=== PATIENT | male | born 1995 | race Two or more races ===

== ENCOUNTER 2024-11-29 07:53 | Emergency (ER) | payer SELFPAY ==
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
[2024-11-29 08:07] VITALS: BP 136/95; PULSE 124; RESP 23; TEMP 37.4; O2SAT 95
[2024-11-29 08:21] VITALS: BMI 29.5
[2024-11-29] MEDS: DIPHTH,PERTUSS(ACELL),TET VAC 0.5 ML SYR- ADULT IMi (08:44)
[2024-11-29 08:48] VITALS: BP 113/71; PULSE 93; RESP 16; O2SAT 97
== END 2024-11-29 09:33 ==
LOC: SERX 10:09
PROVIDERS: Emergency Provider Emergency Medicine
DX: Z02.89 Encounter for other administrative examinations (principal); S60.418A Abrasion of other finger, initial encounter; V43.52XA Car driver injured in collision with other type car in traffic accident, initial encounter; Z23 Encounter for immunization
CPT/HCPCS: 90471; 90715; 99282